=== PATIENT | female | born 1990 | race African-American/Black ===

== ENCOUNTER 2019-11-19 16:29 | Emergency (ER) | payer OTHER ==
[~2019-11-19] VITALS: Ht 180.3 cm; Wt 99.8 kg
--- NOTE | ~2019-11-19 | EKG ---
[facility] [place] [address] ELECTROCARDIOGRAM REPORT Name: Tyler GILL Room #: REG [facility]#: [id number] Admission: 11/19/19 Attend Phys: Discharge: Date of : [birth year] Report #: [id number] THIS REPORT FOR: cc: KAREN Jefferson family physician/PCP KAREN Li family physician/PCP Gianna Katz MD ~ THIS REPORT FOR: //name// [facility] ED Test Date: 2019-11-19 Test Time: 18:31:40 Pat Name: Tyler GILL Department: Room: Gender: F [employer]: ARTURO : 1990 Requested By: Cee Maria Order Number: [id number] MD: Measurements Intervals [place] Rate: 77 P: 70 NV: 148 QRS: 37 QRSD: 79 T: 18 QT: 366 QTc: 415 Interpretive Statements Sinus rhythm Left atrial enlargement No previous ECG available for comparison [email or web address] By: 30 30 Gianna Katz MD /EPI
[~2019-11-19 16:29] MED LIST: BACTRIM DS TAB1 EACH PO; BP MEDS; ERYTHROMYCIN E3.5 G1 OPHTHALMIC; NORCO 5-325 TA1 EACH PO; PREDNISONE 20 M20 MG PO; TRIAMCINOLONE A80 G2 TOP
[2019-11-19 18:16] LABS: ABSOLUTE NEUTROPHILS 2.4 thou/uL (1.4-8.2); BASOPHILS 0.8 % (0.0-2.0); EOSINOPHILS 2.3 % (0.0-3.0); HEMATOCRIT 34.4 % (37.0-47.0); LYMPHOCYTES 45.6 % (24.0-44.0); MCH 30.6 pg (26.0-34.0); MCV 95.6 fL (80.0-100.0); PLATELET COUNT 229 thou/uL (150-400); POLYS 43.3 % (36.0-66.0); RBC 3.59 mil/uL (4.20-5.00); WBC 5.5 thou/uL (4.0-11.0)
[2019-11-19 18:25] LABS: ANION GAP 5 mmol/L (7-16); BUN 26 mg/dL (7-18); CALCIUM 8.6 mg/dL (8.5-10.1); CHLORIDE 108 mmol/L (98-107); CO2 32 mmol/L (21-32); CREATININE 0.7 mg/dL (0.6-1.0); GLUCOSE 73 mg/dL (74-106); POTASSIUM 3.7 mmol/L (3.5-5.1); SODIUM 145 mmol/L (136-145)
[2019-11-19 18:35] LABS: ALBUMIN 3.2 g/dL (3.4-5.0); SGOT 14 U/L (15-37); SGPT 29 U/L (30-65); TOTAL BILIRUBIN 0.1 mg/dL (<0.1-1.0); TOTAL PROTEIN 6.8 g/dL (6.4-8.2); TROPONIN-I <0.06 ng/mL (<0.06)
[2019-11-19] MEDS ORDERED: MOBIC7.5 MG PO (20:28)
[2019-11-19] MEDS ORDERED: LIDOCAINE PAIN1 EACH TRANSDERM (20:28)
[2019-11-19 21:02] VITALS: BP 128/62
== END 2019-11-19 21:00 | disposition home or self-care (01) ==
LOC: ER 16:29
PROVIDERS: Physician Assistant
DX: M54.5 Low back pain (principal); R07.89 Other chest pain; Z90.49 Acquired absence of other specified parts of digestive tract; Z98.890 Other specified postprocedural states

== ENCOUNTER 2020-03-03 19:29 | Emergency (ER) | payer OTHER ==
[~2020-03-03] VITALS: Ht 180.3 cm; Wt 99.8 kg
[~2020-03-03 19:29] MED LIST changes: +LIDOCAINE PAIN1 EACH TRANSDERM; +MECLIZINE HCL25 M1 PO; +MOBIC7.5 MG PO; +TRAZODONE 150150 M1 PO
[2020-03-03 19:56] VITALS: BP 118/76
== END 2020-03-03 20:27 | disposition home or self-care (01) ==
LOC: ER 19:29
DX: M54.5 Low back pain (principal); R42 Dizziness and giddiness; Z90.49 Acquired absence of other specified parts of digestive tract; Z98.890 Other specified postprocedural states; Z79.899 Other long term (current) drug therapy

== ENCOUNTER 2020-03-10 17:19 | Emergency (ER) | payer OTHER ==
[2020-03-10 17:22] VITALS: BP 148/107
== END 2020-03-10 18:34 | disposition home or self-care (01) ==
LOC: ER 17:19
DX: M54.5 Low back pain (principal); R42 Dizziness and giddiness; R00.0 Tachycardia, unspecified; Z98.890 Other specified postprocedural states; Z90.49 Acquired absence of other specified parts of digestive tract

== ENCOUNTER 2020-03-21 03:24 | Emergency (ER) | payer OTHER ==
[~2020-03-21] VITALS: Ht 180.3 cm; Wt 99.8 kg
[2020-03-21] MEDS ORDERED: HIGH BLOOD PRESSURE PO (03:43)
[2020-03-21 04:19] VITALS: BP 100/55
[2020-03-21] MEDS ORDERED: NAPROSYN500 MG PO (04:35)
--- NOTE | 2020-03-21 08:50 | EKG ---
[facility] [place] [address] ELECTROCARDIOGRAM REPORT Name: Tyler GILL Room #: DEP [facility]#: [id number] Admission: 03/21/20 Attend Phys: Discharge: 03/21/20 Date of : [birth year] Report #: [id number] THIS REPORT FOR: cc: NO FAMILY PHYSICIAN or PCP NO FAMILY PHYSICIAN or PCP Jose Bay MD [facility] ~ THIS REPORT FOR: //name// [facility] ED Test Date: 2020-03-21 Test Time: 03:38:43 Pat Name: Tyler GILL Department: Room: Gender: F School Supervisor: NO : 1990 Requested By: Kayden Savage Order Number: [id number] MD: Jose Bay Measurements Intervals [place] Rate: 81 P: 56 GA: 136 QRS: 45 QRSD: 87 T: 50 QT: 374 QTc: 434 Interpretive Statements Sinus rhythm Normal tracing Compared to ECG 03/03/2020 16:35:47 Sinus tachycardia no longer present Electronically Signed On 03-21-2020 8:49:10 CDT by Jose Bay [email or web address] <ELECTRONICALLY SIGNED> By: Jose Bay MD, [facility] 03/21/20 [id number] Jose Bay MD, [facility] /EPI
== END 2020-03-21 04:57 | disposition home or self-care (01) ==
LOC: ER 03:24
DX: M54.5 Low back pain (principal); R51 Headache; R10.30 Lower abdominal pain, unspecified; I10 Essential (primary) hypertension; Z59.0 Homelessness; Z79.899 Other long term (current) drug therapy; Z87.891 Personal history of nicotine dependence